=== PATIENT | male | born 1980 | race Caucasian/White ===

== ENCOUNTER 2024-03-21 06:35 | Outpatient (CLI) | payer OTHER, SELFPAY ==
--- NOTE | ~2024-03-21 | MR_ITS ---
EXAMINATION: MR brain/brain stem wo con DATE: 03/21/2024 07:18 INDICATION: Syncopal episode TECHNIQUE: Magnetic resonance imaging (MRI) of the brain and brainstem was performed without intraven ous contrast. Sequences included sagittal and axial T1-weighted SE, axial diffusion-weighted FS SE, a xial T2*-weighted GRE, axial T2-weighted FLAIR Propeller, axial T2-weighted Propeller, coronal T2-ezra ghted FLAIR, and coronal T1-weighted 3D FSPGR. Apparent diffusion coefficient (ADC) maps were created . COMPARISON: None. FINDINGS: There are no areas of restricted diffusion to suggest acute infarction. There is a single 6 mm T2 hyp erintense, T1 hypointense lesion which appears to involve the rothman matter at the tip of a gyrus in th e medial left parietal lobe. This region is not included on the [id number] for the coronal images. On the coronal imaging there are no evident rothman matter heterotopias or other neuronal migrational a bnormalities. Bilateral hippocampi appear normal and symmetric. No intracranial hemorrhage or abnorma l intracranial mass lesion. There are no intraparenchymal signal abnormalities seen on the other puls e sequences. No evident rothman matter heterotopias The ventricles are symmetric and normal in size. The re are no abnormal extra-axial fluid collections. Flow voids are seen in the cerebral arteries on the T2-weighted sequences consistent with their expected patency. Left vertebral artery is dominant. The re is mucosal thickening in the paranasal sinuses with large mucous retention cyst in the left maxill verito sinus. IMPRESSION: 1. Atypical single nonspecific T2 hyperintense lesion which appears to involve the rothman matter at the tip of a gyrus in the left parietal lobe for which differential would include infarct, cortical scar ring related to prior insult, demyelinating disease, neoplasm or vascular abnormality. Consider furth er evaluation with contrast enhanced MRI. Reviewed, dictated and finalized at location A. IMPRESSION: 1. Atypical single nonspecific T2 hyperintense lesion which appears to involve the rothman matter at the tip of a gyrus in the left parietal lobe for which diffe rential would include infarct, cortical scarring related to prior insult, demye linating disease, neoplasm or vascular abnormality. Consider further evaluation with contrast enhanced MRI.
== END 2024-03-21 06:36 | disposition home or self-care (01) ==
LOC: ANHIMG 06:36
PROVIDERS: PCP Registered Nurse; Visit Provider Registered Nurse
DX: R55 Syncope and collapse (principal); R93.0 Abnormal findings on diagnostic imaging of skull and head, not elsewhere classified
CPT/HCPCS: 70551

== ENCOUNTER 2024-04-17 13:35 | Outpatient (CLI) | payer OTHER, SELFPAY ==
--- NOTE | ~2024-04-17 | MR_ITS ---
EXAMINATION: MR brain/brain stem wo/w con DATE: 04/17/2024 14:35 INDICATION: Syncope. TECHNIQUE: Magnetic resonance imaging (MRI) of the brain and brainstem was performed without and with 15 mL MultiHance intravenous contrast. 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 There is no intracranial hemorrhage , acute infarction, or abnormal intracranial mass lesion. The hippocampi are normal and symmetric. T he ventricles are normal in size. The orbits are normal. There is a mucous retention cyst in left max illary sinus. There is mild mucosal thickening in right maxillary sinus. The mastoid air cells are no rmal. IMPRESSION: 1. 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 Reviewed, dictated and finalized at location A.
== END 2024-04-17 13:36 | disposition home or self-care (01) ==
PROVIDERS: PCP Registered Nurse; Visit Provider Registered Nurse
DX: R55 Syncope and collapse (principal); R93.0 Abnormal findings on diagnostic imaging of skull and head, not elsewhere classified
CPT/HCPCS: 70553; A9577